=== PATIENT | female | born 1945 | race Caucasian/White ===

== ENCOUNTER 2017-03-08 10:51 | Inpatient (IN) ==
--- NOTE | 2017-03-05 22:20 | Discharge Summary ---
<Alessandra Hernandez - Last Filed: 03/05/17 22:16> Date of Encounter: 03/05/17 - Discharge Diagnosis (1) Status post total knee replacement, left Priority: Primary Status: Acute (2) Arthritis of knee, left Priority: Primary Status: Acute (3) HTN (hypertension) Priority: Secondary Status: Acute Qualifiers: Hypertension type: essential hypertension Qualified Code(s): I10 - Essential (primary) hypertension (4) HLD (hyperlipidemia) Priority: Secondary Status: Chronic Qualifiers: Hyperlipidemia type: pure hypercholesterolemia Qualified Code(s): E78.00 - Pure hypercholesterolemia, unspecified; E78.0 - Pure hypercholesterolemia (5) Thyroid disease Priority: Secondary Status: Chronic - Discharge Medications Home Medications: Aspirin Enteric Coated [Aspirin EC] 325 mg PO DAILY #21 tablet. 03/05/17 [Rx] OxyCODONE Immed Rel [Roxicodone 5 MG] 5 - 10 mg PO Q6HR PRN #40 tablet 03/05/17 [Rx] Ibuprofen [Motrin] 200 mg PO Q4-6H PRN 03/08/17 [History] Levothyroxine Sodium [Levoxyl] 50 mcg PO 0630 03/08/17 [History] Lisinopril [Zestril] 10 mg PO DAILY 03/08/17 [History] Lovastatin [Mevacor] 20 mg PO DAILY 03/08/17 [History] Mv-Mn/FA/Vit K/Lycop/Lut/Coq10 [Daily Multivitamin Capsule] 1 tab PO DAILY 03/08 [History] Allergies/Adverse Reactions: 3 Allergy/AdvReac Type Severity Reaction Status Date / Time tramadol Allergy Nausea Verified 03/08/17 11:41 - Patient Status Disposition: Home, Self-Care Condition: Good - Discharge Instructions Follow Up With: Rosario Santiago MD [Primary Care Provider] - - Hospital Course Hospital course: Ms. Wiley is a 72 year old female - Time Spent with Patient Total time spent providing and/or coordinating discharge services: <Jorje Tracey - Last Filed: 03/10/17 06:26> Date of Encounter: 03/10/17 Time of Encounter: 06:25 - Discharge Diagnosis (1) Status post total knee replacement, left Priority: Primary Status: Acute (2) Arthritis of knee, left Priority: Primary Status: Chronic (3) HTN (hypertension) Priority: Secondary Status: Chronic Qualifiers: Hypertension type: essential hypertension Qualified Code(s): I10 - Essential (primary) hypertension (4) HLD (hyperlipidemia) Priority: Secondary Status: Chronic Qualifiers: Hyperlipidemia type: pure hypercholesterolemia Qualified Code(s): E78.00 - Pure hypercholesterolemia, unspecified; E78.0 - Pure hypercholesterolemia (5) Thyroid disease Priority: Secondary Status: Chronic (6) Acute blood loss anemia Priority: Primary Status: Acute Primary care physician: Rosario Santiago - Patient Status Functional capacity at discharge: uses cane/walker Overall status at discharge: patient is progressing back to baseline - Hospital Course Hospital course: Ms. Wiley is a 72 year old female post left total knee replacement. The patient had an uneventful postoperative course. They received antibiotics and physical therapy and were discharged in stable condition. There will follow -up in the office in 2 weeks. - Time Spent with Patient Total time spent providing and/or coordinating discharge services:
[2017-03-08] MEDS ORDERED: Lidocaine -MPF 2% 2 ML VIAL ONE (11:03)
[2017-03-08] MEDS ORDERED: *HR* FentaNYL (PF) 100 MCG/2 ML VIAL ONE ×2 (11:03→12:40)
[2017-03-08] MEDS ORDERED: *HR* Midazolam HCl 2 MG/2 ML VIAL ONE (11:03)
[2017-03-08] MEDS ORDERED: *HR* Propofol 200 MG/20 ML VIAL IVP ONE (11:03)
[2017-03-08] MEDS ORDERED: Ondansetron 4 MG/2 ML VIAL ONE (11:03)
[2017-03-08] MEDS ORDERED: Dexamethasone 4 MG/ML VIAL ONE (11:03)
[2017-03-08] MEDS ORDERED: Lidocaine -MPF 1% 2 ML VIAL ID ONE (11:08)
[2017-03-08] MEDS ORDERED: Plasma-Lyte A (PH 7.4) 1,000 ML IVC SCH (11:15)
--- NOTE | 2017-03-08 11:17 | Anesthesia Evaluation PreOp ---
Date of Encounter: 03/08/17 Time of Encounter: 11:16 - Past History Planned Operation: Left total knee arthroplasty Cardiac History: HTN, Hyperlipidemia Pulmonary History: Denies Any Significant HX [employer] History: Denies Any Significant HX Other Medical History: Thyroid (hypothyroidism) Anesthesia History: Problems (patient has been admitted post-op due to low oxygen levels after anesthesia (likely related to post-op anesthetic effects and not pneumonia, etc)) Medications and Allergies Aspirin Enteric Coated [Aspirin EC] 325 mg PO DAILY #21 tablet. 03/05/17 [Rx] OxyCODONE Immed Rel [Roxicodone 5 MG] 5 - 10 mg PO Q6HR PRN #40 tablet 03/05/17 [Rx] 3 Allergy/AdvReac Type Severity Reaction Status Date / Time tramadol Allergy Nausea Verified 03/03/17 11:41 - Meds/Allergy Pre-op Review Medications Reviewed: Yes Allergies Reviewed: Yes Beta Blockers on Current Med List: No Anesthesia Results - Labs Laboratory Tests 03/03/17 03/03/17 03/03/17 12:06 12:06 12:06 WBC 6.9 Hgb 15.0 Hct 46.5 H Plt Count 268 PT 11.8 INR 1.1 APTT 30.1 Sodium 139 Potassium 4.5 Chloride 106 Carbon Dioxide 26 BUN 9 Creatinine 0.73 Est GFR ( Amer) > 60 Est GFR (Non-Af Amer) > 60 BUN/Creatinine Ratio 12 - Imaging EKG: report reviewed, image reviewed (SR, normal) Anesthesia Exam Weight: 67 kg NPO (# of Hours): >> 8 hrs - HEENT Pupil (Motor): Pupils equal, EOMI Mallampati: II Teeth: Poor dentition Oral Opening: Greater than 3 - [employer] LOC: Oriented [employer] Motor: Normal RUE, Normal LUE, Normal RLE, Normal LLE, Normal Face - Cardiac Rhythm: Regular Murmur: None - Pulmonary Breath Sounds: bilateral Clear Respiratory Effort: Symmetrical Anesthesia Assess/Plan ASA Score: 2 Modified Gerardo Scale for Level of Consciousness: Cooperative, oriented, and tranquil Anesthetic Plan: General, Regional Monitoring Plan: Standard Monitors Recovery Plan: PACU
[2017-03-08] MEDS ORDERED: *HR* Labetalol 20 MG/4 ML SYRINGE IVP PRN (11:19)
[2017-03-08] MEDS ORDERED: Dexamethasone 4 MG/ML VIAL IVP ONE (11:19)
[2017-03-08] MEDS ORDERED: Ondansetron 4 MG/2 ML VIAL IVP ONE (11:19)
[2017-03-08] MEDS ORDERED: *HR* Promethazine 25 MG/ML VIAL IVP PRN (11:19)
[2017-03-08] MEDS ORDERED: Ketorolac 15 MG/ML VIAL IVP ONE (11:19)
[2017-03-08] MEDS ORDERED: CeFAZolin Pre 2,000 MG/100 ML 2,000 MG/100 ML BAG IVPB ONE (11:27)
--- NOTE | 2017-03-08 11:27 | History & Physical Report ---
Date of Encounter: 03/08/17 Time of Encounter: 11:27 24 Hour HP Update - Instructions Instructions: If the History and Physical is less than 30 days old and was completed prior to A.M. admission and or procedure and has NOT been updated on calendar day of procedure please complete this update prior to performing procedure. - Update Patient reports changes in Medical Condition: No Changes in examination, assessment, or condition: No Changes in Medication: No Preop tests/diagnostics Reviewed: Yes Surgery Remains Indicated: Yes Consent for Planned Operative Procedure(s) Verified: Yes - Pre-Operative Checklist Preoperative Checklist Indicated: No Prophylactic Antibiotic Ordered: Yes Is VTE Prophylaxis Indicated?: Yes
[2017-03-08] MEDS ORDERED: ROPIVACAINE HCL/PF 0.5% 30 ML VIAL ONE (11:49)
[2017-03-08] MEDS ORDERED: Bupivacaine/Clonidine Syringe 1 EACH SYRINGE ONE (11:50)
--- NOTE | 2017-03-08 12:21 | Anesthesia Procedures ---
Date of Encounter: 03/08/17 Time of Encounter: 12:05 Procedures: Anesthesia - Nerve Block Procedure Date: 03/08/17 Time: 12:05 Allergies/Adv Reactions: tramadol Pre-op Diagnosis: left knee arthritis Surgical Procedure: left total knee Checklist: Correct Patient Identifier, Correct procedure, History checked Correct side: Left Blood Thinner: No Monitor Applied: EKG, BP, Pulse Oximetry Supplemental Oxygen via Nasal Cannula (L/min): 2 Sedation: Versed (mg): 1 Sedation: Fentanyl (mcg): 50 Indication: Post Op Analgesia Pre-op Neuro Deficits: No Block Type: Femoral, Other (i pac block) Catheter placed: No Sterile Technique: Yes Ultrasound used: Yes Anatomy identified: Yes Visual spread of Local: Yes Neuro Stimulation: Yes Nerve Stimulator Range: 0.2 - 0.4 mA Blood on Needle Aspiration: No Smooth Injection of Local: Yes Pain with Injection of Local: No Prep: Chlorhexadine Needle: 22 x 50 mm Stimuplex (femoral, ), 21 x 100 mm Stimuplex (i pac) Local: 0.25% Bupivicaine w/Clonidine 20 mcg/cc (20 ml for ipac), Ropivacaine ( 30ml with femoral) Volume (cc): 50 Number of Attempts: 1 Complications: None/effective block Vitals: 3 Vital Signs Time 1205 1215 BP 121/77 131/74 Pulse 95 95 Resp 16 16 O2 Sat 95 95
--- NOTE | 2017-03-08 13:00 | Orthopedic Operative Note ---
Date of procedure: 03/08/17 Pre-op diagnosis: Left knee arthritis Post-op diagnosis: same Procedure: Procedure: Left Total knee replacement Estimated blood loss: 200 cc Hardware: Metal and polyethylene replacement. Arthrex Femur: 4 Tibia: 4 PS insert: 13 Patella: 34 Exam Under anesthesia: Full flexion and extension no instability Procedural Notes: Grade 4 arthritic changes medial compartment grade 3 arthritic changes patellofemoral joint. Operative procedure: The patient was brought to the operating room and placed on the operating room table. After general anesthesia was administered the operative knee was examined. Findings were noted in the exam under anesthesia. The operative extremity was prepped and draped in sterile surgical fashion. The patient received IV antibiotics prior to skin incision. A standard midline incision was made centered over the patella. The incision was made through the skin and subcutaneous tissue. A medial parapatellar tendon approach was performed. Care was taken to preserve tissue along the medial aspect of the patella. And to protect the patella tendon. The deep MCL was released off the medial tibia. The infra patella fat pad was excised. Knee was brought into flexion. Patient to have grade 4 arthritic changes medial compartment grade 3 arthritic changes patellofemoral joint. The entry hole was made for the intramedullary femoral guide. The guide was seated in 6 degrees of valgus. Anterior cut was made followed by the distal cut. The ACL the PCL the medial and the lateral menisci were excised. The tibia was subluxed forward. The entry hole was made for the intramedullary tibial guide. Guide was seated to resect 2 mm off the more abnormal side. The knee was brought into flexion the distal femur was sized to a 4. The femoral guide was seated, the anterior cut was made followed by the posterior condylar cut, followed by the chamfer cuts. The finishing guide was seated the box cut was made and the lug holes were drilled. The tibia was sized to a 4, the tibial tray was seated and prepared with the large drill followed by the fin cutter. Trial reduction revealed full extension no varus valgus instability with the appropriate 13 PS Kathy. The patella was everted and cut was made at the level of the insertion of the quadriceps and patella tendon. The patella was sized to 34 the guide was seated and the lug holes are drilled. Trial reduction revealed excellent patella tracking. All trial components were removed all bony surfaces were irrigated. The tibia was cemented first followed by the femur. The 13 PS Kathy was seated and the knee was brought into full extension. The patella was cemented and held in place with the patellar holding clamp. After the cement had hardened, the knee sat for 2 minutes with a Betadine saline solution. The knee was then irrigated out with 2 L of pulse irrigation. The PA closed the knee. The extensor mechanism was closed with #2 FiberWire suture and #2 PDS suture. The subcutaneous tissue was then irrigated and closed deep with #1 PDS suture superficially with 0 PDS suture and skin was closed with skin christian. The patient was then placed in a sterile dressing and a postoperative brace extubated and transferred to recovery room in stable condition. Anesthesia: GETAnderson Surgeon: Jorje Tracey Condition: stable Disposition: PACU
[2017-03-08] MEDS: *HR* Morphine 2 MG/ML SYRINGE IVP PRN ×5 (13:34→13:56)
[2017-03-08] MEDS ORDERED: *HR* HYDROmorphone (PF) 1 MG/ML SYRINGE ONE (14:00)
--- NOTE | 2017-03-08 14:28 | Anesthesia Evaluation Post Op ---
Date of Encounter: 03/08/17 Time of Encounter: 14:25 - Vital Signs Vital Signs: vss - Lungs Lungs: Clear Ascult./Percussion - Airway Airway: Non-obstructed - Cardiovascular Baseline Rhythm - Mental Status Mental Status: Alert & Oriented, Answers Appropriately - Pain Pain Scale used: [place]ule[place]ka (Faces) - Nausea Vomiting Nausea Vomiting: Not Present - Hydration Hydration: Ice chips - Discharge PostOp Status: Transfer Patient to floor
[2017-03-08] MEDS ORDERED: MOM Conc 10 ML UD.LIQ PO PRN (14:34)
[2017-03-08] MEDS ORDERED: Temazepam 15 MG CAPSULE PO PRN (14:34)
[2017-03-08] MEDS ORDERED: Naloxone 0.4 MG/ML INJ IVP PRN (14:34)
[2017-03-08] MEDS ORDERED: Sennosides 8.6 MG TABLET PO PRN (14:34)
[2017-03-08 14:36] LABS: Hematocrit 38.6 % (35.3-44.9)
[2017-03-08 14:43] LABS: Hemoglobin 12.4 g/dL (11.5-15.4)
[2017-03-08] MEDS: *HR* HYDROmorphone (PF) 1 MG/ML SYRINGE IVP PRN (14:52)
[2017-03-08] MEDS: Ondansetron 4 MG/2 ML VIAL IVP PRN (14:53)
[2017-03-08] MEDS ORDERED: *HR* Enoxaparin 30 MG/0.3 ML SYRINGE SQ SCH (18:00)
[2017-03-08 18:49] LABS: BUN/Creatinine Ratio 20 (6-26); Blood Urea Nitrogen 14 mg/dL (7-20); Calcium 8.1 mg/dL (8.6-10.8); Carbon Dioxide 24 mEq/L (19-29); Chloride 106 mEq/L (98-109); Glucose 179 mg/dL (70-99); Osmolality,Calculated 293 (280-300); Potassium 4.1 mEq/L (3.5-4.5); Sodium 139 mEq/L (136-145); eGFR For African Americans > 60 (> 60); eGFR For Non-African Americans > 60 (> 60)
[2017-03-08] MEDS: *HR* Enoxaparin 30 MG/0.3 ML SYRINGE SQ SCH (18:56)
[2017-03-08] MEDS: *HR* OxyCODONE Immed Rel 5 MG TABLET PO PRN (19:55)
[2017-03-08] MEDS: ceFAZolin 2,000 MG in D5% in Water 100 ML IVPB SCH (19:55)
[2017-03-09] MEDS: *HR* HYDROmorphone (PF) 1 MG/ML SYRINGE IVP PRN ×4 (04:43→21:24)
[2017-03-09] MEDS: Ondansetron 4 MG/2 ML VIAL IVP PRN (04:48)
[2017-03-09 05:14] LABS: Hematocrit 34.3 % (35.3-44.9); Hemoglobin 11.5 g/dL (11.5-15.4)
[2017-03-09 05:48] LABS: BUN/Creatinine Ratio 22 (6-26); Blood Urea Nitrogen 16 mg/dL (7-20); Calcium 8.2 mg/dL (8.6-10.8); Carbon Dioxide 24 mEq/L (19-29); Chloride 104 mEq/L (98-109); Glucose 165 mg/dL (70-99); Osmolality,Calculated 289 (280-300); Potassium 4.3 mEq/L (3.5-4.5); Sodium 137 mEq/L (136-145); eGFR For African Americans > 60 (> 60); eGFR For Non-African Americans > 60 (> 60)
[2017-03-09] MEDS: *HR* Enoxaparin 30 MG/0.3 ML SYRINGE SQ SCH ×2 (06:36→18:54)
--- NOTE | 2017-03-09 06:54 | Orthopedics Progress Note ---
Date of Encounter: 03/09/17 Time of Encounter: 06:53 - Assessment and Plan (1) Status post total knee replacement, left Current Visit: Yes Status: Acute (2) Arthritis of knee, left Current Visit: Yes Status: Chronic (3) HTN (hypertension) Current Visit: Yes Status: Chronic Qualifiers: Hypertension type: essential hypertension Qualified Code(s): I10 - Essential (primary) hypertension (4) HLD (hyperlipidemia) Current Visit: Yes Status: Chronic Qualifiers: Hyperlipidemia type: pure hypercholesterolemia Qualified Code(s): E78.00 - Pure hypercholesterolemia, unspecified; E78.0 - Pure hypercholesterolemia (5) Thyroid disease Current Visit: Yes Status: Chronic Subjective Interval history: Patient was seen this morning doing well without complaints. Afebrile vital signs stable. Operative extremity: Neurovascularly intact Dressing clean dry and intact Calves nontender Assessment and plan: Continue with postoperative care Hematocrit 34 Objective Vital signs: Vital Signs Temp Pulse Resp BP Pulse Ox 03/09/17 04:51 98.4 F 62 18 110/54 99 03/09/17 00:50 97.6 F 75 18 96/63 97 03/08/17 22:39 97.2 F L 03/08/17 22:02 96.7 F L 62 17 106/70 100 03/08/17 17:00 95.4 F L 62 14 96/53 100 03/08/17 15:30 96.8 F L 65 12 108/57 95 03/08/17 15:00 97.6 F 60 12 101/55 100 03/08/17 14:16 97.6 F 88 16 124/61 100 03/08/17 14:06 70 15 124/61 100 03/08/17 13:56 97.6 F 66 19 111/63 100 03/08/17 13:46 81 17 104/63 100 03/08/17 13:36 78 19 89/60 99 03/08/17 13:26 97.2 F L 84 18 126/70 100 03/08/17 11:09 97.8 F 82 18 123/68 96 Intake and Output 03/08/17 03/08/17 03/09/17 15:59 23:59 07:59 Intake Total 100 / 100 100 / 100 Output Total 200 / 200 400 / 400 Balance -100 / -100 -300 / -300 Intake: IV Fluids 100 / 100 100 / 100 Ancef Premix 2,000 MG/100 100 / 100 ML 2,000 mg In 100 ml @ 200 mls/hr IVPB PREOP ONE Rx#:[id number] Ancef 2,000 MG In 100 / 100 Dextrose 5% 100 ML @ 200 mls/hr IVPB Q8H [facility] Rx#: [id number] Output: Urine 250 / 250 Emesis 150 / 150 Estimated Blood Loss 200 / 200 Other: # Voids 1 Weight 67.132 kg - Labs CBC & BMP: 03/09/17 04:46 03/09/17 04:46 Labs: Abnormal lab results Hct 34.3 % (35.3-44.9) L 03/09/17 04:46 Glucose 165 mg/dL (70-99) H 03/09/17 04:46 Calcium 8.2 mg/dL (8.6-10.8) L 03/09/17 04:46 - VTE Documentation of Mechanical Device: Venous foot pump, device Consult Discharge Plan - Plan Referrals: Rosario Santiago MD [Primary Care Provider] -
[2017-03-09] MEDS: Multivit/Ca/Min/Fe/FA 1 TAB TABLET PO SCH (07:40)
[2017-03-09] MEDS: ceFAZolin 2,000 MG in D5% in Water 100 ML IVPB SCH (07:51)
[2017-03-09] MEDS: Ringers Solution, Lactated 1,000 ML IVC SCH ×2 (08:35→23:29)
[2017-03-09] MEDS: *HR* Promethazine 25 MG/ML VIAL IVP PRN (10:14)
--- NOTE | 2017-03-09 12:33 | Event Note ---
Date of Encounter: 03/10/17 Time of Encounter: 12:31 PCR - Left TKR - POD#1 Patient seen at bedside. Hypothermia improved. Continues with warm blankets. Nausea - added Phen. D/C'ed IV pain medication to improve nausea, discussed changing to [place] if nausea continues. Pain control: adequate Participating in PT. All questions and concerns addressed. Educated on use of incentive spirometer, ambulation, and hydration. Patient educated on post-operative restrictions and care. Addressed: see above D/C plan:. HH likely 03/10
[2017-03-09] MEDS: *HR* OxyCODONE Immed Rel 5 MG TABLET PO PRN ×3 (14:26→23:26)
[2017-03-10] MEDS: *HR* OxyCODONE Immed Rel 5 MG TABLET PO PRN ×5 (05:11→21:38)
[2017-03-10] MEDS: *HR* Enoxaparin 30 MG/0.3 ML SYRINGE SQ SCH ×2 (05:11→17:24)
[2017-03-10 06:08] LABS: Hematocrit 30.6 % (35.3-44.9)
[2017-03-10 06:24] LABS: BUN/Creatinine Ratio 16 (6-26); Blood Urea Nitrogen 11 mg/dL (7-20); Calcium 8.4 mg/dL (8.6-10.8); Carbon Dioxide 25 mEq/L (19-29); Chloride 100 mEq/L (98-109); Glucose 150 mg/dL (70-99); Osmolality,Calculated 280 (280-300); Sodium 134 mEq/L (136-145); eGFR For African Americans > 60 (> 60); eGFR For Non-African Americans > 60 (> 60)
--- NOTE | 2017-03-10 06:27 | Orthopedics Progress Note ---
Date of Encounter: 03/10/17 Time of Encounter: 06:26 - Assessment and Plan (1) Status post total knee replacement, left Current Visit: Yes Status: Acute (2) Arthritis of knee, left Current Visit: Yes Status: Chronic (3) HTN (hypertension) Current Visit: Yes Status: Chronic Qualifiers: Hypertension type: essential hypertension Qualified Code(s): I10 - Essential (primary) hypertension (4) HLD (hyperlipidemia) Current Visit: Yes Status: Chronic Qualifiers: Hyperlipidemia type: pure hypercholesterolemia Qualified Code(s): E78.00 - Pure hypercholesterolemia, unspecified; E78.0 - Pure hypercholesterolemia (5) Thyroid disease Current Visit: Yes Status: Chronic (6) Acute blood loss anemia Current Visit: Yes Status: Acute Subjective Interval history: Patient was seen this morning doing well without complaints. Afebrile vital signs stable. Operative extremity: Neurovascularly intact Dressing clean dry and intact Calves nontender Assessment and plan: Continue with postoperative care Hematocrit 30 discharged today Objective Vital signs: Vital Signs Temp Pulse Resp BP Pulse Ox 03/10/17 04:20 98.8 F 97 16 122/75 94 03/09/17 23:19 98.6 F 100 16 114/64 93 03/09/17 19:32 98.1 F 86 18 134/78 96 03/09/17 15:24 97.6 F 79 18 102/68 97 03/09/17 13:48 78 18 111/52 99 03/09/17 11:16 97.5 F L 78 18 111/52 99 03/09/17 10:25 97.5 F L 80 18 125/63 100 03/09/17 07:45 97.9 F 68 18 110/66 96 03/09/17 07:37 100 Intake and Output 03/09/17 03/09/17 03/10/17 15:59 23:59 07:59 Intake Total 150 / 150 Output Total 300 / 300 0 / 0 400 / 400 Balance -300 / -300 150 / 150 -400 / -400 Intake: Oral 150 / 150 Output: Urine 300 / 300 0 / 0 400 / 400 Other: Meal Lunch Percent of Meal Consumed 50% # Voids 1 Weight 63.616 kg Patient Weight 03/10/17 23:59 Weight 63.616 kg - Labs CBC & BMP: 03/10/17 05:43 03/10/17 05:43 Labs: Abnormal lab results Hgb 10.0 g/dL (11.5-15.4) L D 03/10/17 05:43 Hct 30.6 % (35.3-44.9) L 03/10/17 05:43 Sodium 134 mEq/L (136-145) L 03/10/17 05:43 Glucose 150 mg/dL (70-99) H 03/10/17 05:43 Calcium 8.4 mg/dL (8.6-10.8) L 03/10/17 05:43 - VTE Documentation of Mechanical Device: Venous foot pump, device Consult Discharge Plan - Plan Referrals: Rosario Santiago MD [Primary Care Provider] -
[2017-03-10] MEDS: Multivit/Ca/Min/Fe/FA 1 TAB TABLET PO SCH (08:10)
--- NOTE | 2017-03-10 10:17 | Venous Imaging Report ---
LE Venous Duplex Patient Name:Abbi Wiley Order Number:[id number] Procedure Date:03/09/2017 Date:4Age:72 yrs Gender:Female Location:[facility] Room #: 3NE31 Clinical Services Consultant:Liz Ruelas RDCS Referring MD:Jorje Tracey MD moisture meter operator:Rosario Santiago MD Reading MD:Anthony Cervantes MD Primary Indications:Left calf pain Secondary Indications: Impressions: Left lower extremity: normal superficial and deep exam. Findings Prior Study: No prior study available for comparison. Lower Extremity Venous Duplex Side Vein Compress Spontaneous Flow Augment Diameter (cm) Depth (cm) Left Distal Iliac Normal Yes Phasic Yes Left Common Femoral Normal Yes Phasic Yes Left Superficial Femoral Normal Yes Phasic Yes Left Popliteal Normal Yes Phasic Yes Left Posterior Tibial Normal Yes Phasic Yes Left Peroneal Normal Yes Phasic Yes Left Saphenofemoral [place] Normal Yes Phasic Yes Left Great Saphenous Normal Yes Phasic Yes Left Lesser Saphenous Normal Yes Phasic Yes Right Common Femoral Normal Yes Phasic Yes Updated by Anthony Cervantes MD on 03/10/2017 10:09:10 AM electronically signed on 03/10/2017 10:09:27 AM with status of Final
[2017-03-11] MEDS: *HR* OxyCODONE Immed Rel 5 MG TABLET PO PRN ×4 (03:29→20:24)
[2017-03-11] MEDS: *HR* Enoxaparin 30 MG/0.3 ML SYRINGE SQ SCH ×2 (05:27→17:13)
[2017-03-11] MEDS: Multivit/Ca/Min/Fe/FA 1 TAB TABLET PO SCH (08:48)
--- NOTE | 2017-03-11 09:36 | Event Note ---
Date of Encounter: 03/10/17 Time of Encounter: 12:00 PCR - Left TKR - POD#2 Patient seen at bedside. Hypothermia resolved. Nausea - added Phen. Well controlled per patient. D/C'ed IV pain medication to improve nausea, discussed changing to [place] if nausea continues. Pain control: adequate until appx last hour before next dose due. Patient then develops exquisite tenderness and shakes with pain. Participating in PT. All questions and concerns addressed. Educated on use of incentive spirometer, ambulation, and hydration. Patient educated on post-operative restrictions and care. Addressed: see above. Pain is most likely source of rigors, no other clinical explanation for increase in pain other than metabolization of pain meds. Encouraged using ice pack and moving foot around to encourage adequate blood flow. Lidoderm patch added. Would consider muscle relaxer as well if still not well controlled. D/C plan:. HH likely 03/10
[2017-03-11] MEDS ORDERED: tiZANidine 4 MG TABLET PO PRN (09:37)
[2017-03-11] MEDS ORDERED: Gabapentin 100 MG CAPSULE PO PRN (09:38)
[2017-03-11] MEDS ORDERED: Ibuprofen 600 MG TABLET PO PRN (09:40)
--- NOTE | 2017-03-11 09:57 | Orthopedics Progress Note ---
Date of Encounter: 03/11/17 Time of Encounter: 09:55 Subjective Interval history: S: Expected postoperative pain to the left knee. No new complaints. O: Afebrile and vital signs are stable. Postoperative dressing in place without drainage. Calves are nontender. She is neurovascularly intact to the left lower extremity. A: Post left total knee arthroplasty P: Resume postoperative care. Objective Vital signs: Vital Signs Temp Pulse Resp BP Pulse Ox 03/11/17 06:48 98.5 F 93 16 107/58 96 03/11/17 03:25 98.4 F 97 18 105/51 95 03/11/17 00:12 99.2 F 94 18 115/67 93 03/10/17 20:29 99.8 F H 97 19 106/64 96 03/10/17 13:44 98.5 F 90 18 105/53 94 03/10/17 10:10 98.8 F 87 18 123/67 94 Intake and Output 03/10/17 03/11/17 03/11/17 23:59 07:59 15:59 Intake Total 560 / 560 Output Total 200 / 200 0 / 0 Balance 360 / 360 0 / 0 Intake: Oral 560 / 560 Output: Urine 200 / 200 0 / 0 Other: Weight 62.823 kg Patient Weight 03/11/17 23:59 Weight 62.823 kg - Labs CBC & BMP: 03/10/17 05:43 03/10/17 05:43 Labs: Abnormal lab results Hgb 10.0 g/dL (11.5-15.4) L D 03/10/17 05:43 Hct 30.6 % (35.3-44.9) L 03/10/17 05:43 Sodium 134 mEq/L (136-145) L 03/10/17 05:43 Glucose 150 mg/dL (70-99) H 03/10/17 05:43 Calcium 8.4 mg/dL (8.6-10.8) L 03/10/17 05:43 - VTE Documentation of Mechanical Device: Venous foot pump, device Consult Discharge Plan - Plan Referrals: Rosario Santiago MD [Primary Care Provider] -
[2017-03-12] MEDS: *HR* OxyCODONE Immed Rel 5 MG TABLET PO PRN ×2 (02:54→09:06)
[2017-03-12] MEDS: *HR* Enoxaparin 30 MG/0.3 ML SYRINGE SQ SCH ×2 (06:09→17:52)
[2017-03-12] MEDS: Multivit/Ca/Min/Fe/FA 1 TAB TABLET PO SCH (09:06)
--- NOTE | 2017-03-12 10:09 | Orthopedics Progress Note ---
Date of Encounter: 03/12/17 Time of Encounter: 10:07 Subjective Interval history: S: Postoperative pain. Patient desires more pain medication. No new complaints. O: Afebrile and vital signs are stable. Postoperative dressing in place without drainage. Calves are nontender. She is neurovascularly intact to the left lower extremity. A: Post left total knee arthroplasty P: Resume postoperative care. Has not gotten her breakhrough Dilaudid. Recommended to the nurse to give the PRN Dilaudid. Objective Vital signs: Vital Signs Temp Pulse Resp BP Pulse Ox 03/12/17 06:44 97.5 F L 93 16 105/73 96 03/12/17 00:00 97.2 F L 89 16 103/65 95 03/11/17 18:59 97.5 F L 101 16 102/66 98 03/11/17 15:05 98.4 F 86 18 114/68 95 03/11/17 10:21 98.7 F 96 16 112/63 97 Intake and Output 03/11/17 03/12/17 03/12/17 23:59 07:59 15:59 Intake Total 60 / 60 60 / 60 Output Total 300 / 300 400 / 400 Balance -240 / -240 -340 / -340 Intake: Oral 60 / 60 60 / 60 Output: Urine 300 / 300 400 / 400 - Labs CBC & BMP: 03/10/17 05:43 03/10/17 05:43 Labs: Abnormal lab results Hgb 10.0 g/dL (11.5-15.4) L D 03/10/17 05:43 Hct 30.6 % (35.3-44.9) L 03/10/17 05:43 Sodium 134 mEq/L (136-145) L 03/10/17 05:43 Glucose 150 mg/dL (70-99) H 03/10/17 05:43 Calcium 8.4 mg/dL (8.6-10.8) L 03/10/17 05:43 - VTE Documentation of Mechanical Device: Venous foot pump, device Consult Discharge Plan - Plan Referrals: Rosario Santiago MD [Primary Care Provider] -
[2017-03-12] MEDS: Ringers Solution, Lactated 1,000 ML IVC SCH ×2 (17:52→21:44)
[2017-03-12] MEDS ORDERED: 0.9 % Sodium Chloride 1,000 ML IVC ONE (18:50)
[2017-03-12 18:52] LABS: Hematocrit 23.1 % (35.3-44.9); Hemoglobin 7.6 g/dL (11.5-15.4)
[2017-03-12 19:57] LABS: Calcium 8.4 mg/dL (8.6-10.8)
[2017-03-12 19:58] LABS: Potassium 3.9 mEq/L (3.5-4.5)
[2017-03-12] MEDS ORDERED: Pantoprazole 40 MG in 0.9 % Sodium Chloride Mini Bag 100 ML IVC SCH (21:15)
[2017-03-12] MEDS: *HR* Promethazine 25 MG/ML VIAL IVP PRN (21:15)
[2017-03-12] MEDS: 0.9 % Sodium Chloride 1,000 ML IVC SCH (21:40)
[2017-03-12] MEDS ORDERED: 0.9 % Sodium Chloride 250 ML ONE (22:32)
[2017-03-12] MEDS: *HR* HYDROmorphone (PF) 1 MG/ML SYRINGE IVP PRN (22:36)
--- NOTE | 2017-03-13 01:35 | Internal Medicine Consult Note ---
Date of Encounter: 03/12/17 Time of Encounter: 20:00 - Assessment and Plan (1) Hypotension Current Visit: Yes Status: Acute Assessment and plan: Patient has hypotension with hemoglobin drop. Consider active bleeding. CT chest and abdominal unremarkable. Rectal exam did not see any active bleeding. However guaiac test positive. - Blood loss during surgery (patient had the surgery four days ago, which make it less likely) vs GI bleeding. - We will place patient on nothing by mouth, protonix drip. - Continue IV fluid, closely monitor BP. - We will give patient 2 units PRBC transfusion. - Consult GI in a.m. - We will hold blood pressure medication and Lovenox. Qualifiers: Hypotension type: other hypotension type Qualified Code(s): I95.89 - Other hypotension (2) CHALO (acute kidney injury) Current Visit: Yes Status: Acute Assessment and plan: Probably due to active bleeding and hypotension. We will continue IV fluid and follow-up renal function (3) Status post total knee replacement, left Current Visit: Yes Status: Acute Assessment and plan: Continue close monitoring. Other management per orthopedic. (4) HTN (hypertension) Current Visit: Yes Status: Chronic Assessment and plan: Hold BP medication because of hypotension. Qualifiers: Hypertension type: essential hypertension Qualified Code(s): I10 - Essential (primary) hypertension (5) HLD (hyperlipidemia) Current Visit: Yes Status: Chronic Qualifiers: Hyperlipidemia type: pure hypercholesterolemia Qualified Code(s): E78.00 - Pure hypercholesterolemia, unspecified; E78.0 - Pure hypercholesterolemia (6) Thyroid disease Current Visit: Yes Status: Chronic Assessment and plan: Continue Synthroid. (7) Acute blood loss anemia Current Visit: Yes Status: Acute Assessment and plan: So far blood loss site is considered GI tract. - We will give her 2 units of PRBC. Monitor H&H. Internal Medicine - CN: HPI - Data of Consult Patient: new to practice Consult date: 03/12/17 Requesting Physician: Jorje Tracey MD - Consult Narrative Reason for consult: Hypotension History of present illness: Ms. Wiley is a 72 year old female with history of hypertension and hyperlipidemia had a recent left knee replacement on 03/08/17, had hypotension since this afternoon. Medical consult for management. Patient feels sick, nausea, vomiting after surgery. The vomiting is clear liquid, no blood in it. Patient has a poor uptake. Since this afternoon, patient did develop hypotension, with SBP at 60s-70s, which increased to 80s after IV fluid. Patient was also found the decrease of hemoglobin (12.4/11.5/10.0/7.6). Patient has history of peptic ulcer many years ago. Patient denies black stool. The incision site of left knee replacement is clean, no bleeding. Past Med Surg Social Fam HX - Past Medical History Medical history: arthritis, hyperlipidemia, hypertension, thyroid disease Psychiatric history: no psych history - Past Surgical History Surgical History: appendectomy - Social History Smoking Status: Never smoker Smokeless Tobacco Status: No Alcohol use: none Drug use: none Internal Medicine - CN: Meds Aspirin Enteric Coated [Aspirin EC] 325 mg PO DAILY #21 tablet. 03/05/17 [Rx] OxyCODONE Immed Rel [Roxicodone 5 MG] 5 - 10 mg PO Q6HR PRN #40 tablet 03/05/17 [Rx] Ibuprofen [Motrin] 200 mg PO Q4-6H PRN 03/08/17 [History] Levothyroxine Sodium [Levoxyl] 50 mcg PO 0630 03/08/17 [History] Lisinopril [Zestril] 10 mg PO DAILY 03/08/17 [History] Lovastatin [Mevacor] 20 mg PO DAILY 03/08/17 [History] Mv-Mn/FA/Vit K/Lycop/Lut/Coq10 [Daily Multivitamin Capsule] 1 tab PO DAILY 03/08 [History] 3 Allergy/AdvReac Type Severity Reaction Status Date / Time tramadol Allergy Nausea Verified 03/08/17 11:41 Internal Medicine - CN: Exam - Constitutional Vitals: Temp Pulse Resp BP Pulse Ox 98.1 F 80 16 86/40 96 03/13/17 00:06 03/13/17 00:06 03/13/17 00:06 03/13/17 00:06 03/13/17 00:06 General appearance IM: Present: A&O X 3, answers questions appropriately Exam: Patient is a lethargic - Head Head exam: Present: atraumatic, normocephalic - Eye Eye exam: Present: PERRL - Neck Neck exam general surgery: Present: full ROM. Absent: nuchal rigidity - Respiratory Respiratory exam: Present: CTAB - Cardiovascular Cardiovascular exam IM: Present: +S1, +S2. Absent: systolic murmur - GI/Abdominal GI/Abdominal exam IM: Present: tenderness (Mild whole belly tenderness without rebound or guarding) - Rectal Rectal exam: Present: heme (+) stool, normal inspection, normal rectal tone. Absent: black stool, bloody stool - Extremities Exam Extremities exam IM: Present: warm - Neurological Exam Neurological exam: Present: CN II-XII intact, no focal deficits Internal Medicine - CN: Reslt - Labs CBC & Chem 7: 03/12/17 18:44 03/12/17 19:16 Labs: Short CBC 03/12/17 Range/Units 18:44 Hgb 7.6 L D (11.5-15.4) g/dL Hct 23.1 L (35.3-44.9) % BMP 03/12/17 19:16 Sodium 135 L Potassium 3.9 Chloride 100 Carbon Dioxide 25 BUN 19 Creatinine 1.26 H D Glucose 145 H Calcium 8.4 L - Impressions Impressions Abdomen CT 03/12/17 20:00 IMPRESSION: No acute findings. Atelectasis within the lungs. No focal consolidation or pleural effusion. No findings to suggest obstruction in the abdomen. Bladder is distended with superior margin just above the iliac crests. D/ / Cathie Barlow MD / Cathie Barlow MD Interpreting Provider: Cathie Barlow MD Chest CT 03/12/17 20:00 IMPRESSION: No acute findings. Atelectasis within the lungs. No focal consolidation or pleural effusion. No findings to suggest obstruction in the abdomen. Bladder is distended with superior margin just above the iliac crests. D/ / Cathie Barlow MD / Cathie Barlow MD Interpreting Provider: Cathie Barlow MD Consult Discharge Plan - Plan Referrals: Rosario Santiago MD [Primary Care Provider] -
[2017-03-13] MEDS ORDERED: 0.9 % Sodium Chloride 250 ML ONE (03:47)
--- NOTE | 2017-03-13 08:20 | Orthopedics Progress Note ---
Date of Encounter: 03/13/17 Time of Encounter: 08:19 - Assessment and Plan (1) Status post total knee replacement, left Current Visit: Yes Status: Acute (2) Arthritis of knee, left Current Visit: Yes Status: Chronic (3) HTN (hypertension) Current Visit: Yes Status: Chronic Qualifiers: Hypertension type: essential hypertension Qualified Code(s): I10 - Essential (primary) hypertension (4) HLD (hyperlipidemia) Current Visit: Yes Status: Chronic Qualifiers: Hyperlipidemia type: pure hypercholesterolemia Qualified Code(s): E78.00 - Pure hypercholesterolemia, unspecified; E78.0 - Pure hypercholesterolemia (5) Thyroid disease Current Visit: Yes Status: Chronic (6) Acute blood loss anemia Current Visit: Yes Status: Acute Subjective Interval history: Patient was seen this morning in cardiac care unit Afebrile vital signs stable. Operative extremity: Neurovascularly intact Dressing clean dry and intact Calves nontender Assessment and plan: Continue with postoperative care as per medical team Last hemoglobin was 7.6. The knee is not the source based on exam. We will continue to monitor and rehabilitation patient as per protocol. Objective Vital signs: Vital Signs Temp Pulse Resp BP Pulse Ox 03/13/17 07:11 98.8 F 70 15 93/42 94 03/13/17 05:36 98.4 F 74 16 87/42 03/13/17 05:21 98.2 F 72 16 82/40 03/13/17 03:59 98.3 F 77 18 81/41 95 03/13/17 03:25 98.2 F 72 16 80/35 03/13/17 00:06 98.1 F 80 16 86/40 96 03/12/17 23:51 98.0 F 78 16 78/41 96 03/12/17 21:44 97.8 F 67 16 97/52 98 03/12/17 19:19 98.1 F 70 16 80/49 100 03/12/17 19:08 98.1 F 66 14 75/41 95 03/12/17 18:51 98.1 F 63 15 71/44 99 03/12/17 18:35 98.1 F 63 14 66/30 95 03/12/17 18:20 98.0 F 60 14 67/38 95 03/12/17 17:30 78/56 03/12/17 10:26 97.8 F 97 16 107/68 98 Intake and Output 03/12/17 03/13/17 03/13/17 23:59 07:59 15:59 Intake Total 450 / 450 320 / 320 Output Total 610 / 610 1500 / 1500 Balance -160 / -160 -1180 / -1180 Intake: Oral 150 / 150 Blood Product 300 / 300 320 / 320 Rbcs Leuko Poor As-1 300 / 300 20 / 20 Unit [id number] Rbcs Leuko Poor As-3 2nd 300 / 300 Unit [id number] Output: Urine 250 / 250 500 / 500 Urethral (Frost) 500 / 500 Emesis 360 / 360 Catheter 1000 / 1000 Other: # Voids 1 Weight 70.8 kg 70.8 kg Patient Weight 03/13/17 23:59 Weight 70.8 kg - Labs CBC & BMP: 03/12/17 18:44 03/12/17 19:16 Labs: Abnormal lab results Hgb 7.6 g/dL (11.5-15.4) L D 03/12/17 18:44 Hct 23.1 % (35.3-44.9) L 03/12/17 18:44 Sodium 135 mEq/L (136-145) L 03/12/17 19:16 Creatinine 1.26 mg/dL (0.57-1.11) H D 03/12/17 19:16 Est GFR ( Amer) 50 (> 60) L 03/12/17 19:16 Est GFR (Non-Af Amer) 42 (> 60) L 03/12/17 19:16 Glucose 145 mg/dL (70-99) H 03/12/17 19:16 Calcium 8.4 mg/dL (8.6-10.8) L 03/12/17 19:16 Stool Occult Blood Positive (Negative) A 03/12/17 19:50 - VTE Documentation of Mechanical Device: Venous foot pump, device Consult Discharge Plan - Plan Referrals: Rosario Santiago MD [Primary Care Provider] -
[2017-03-13] MEDS: *HR* OxyCODONE Immed Rel 5 MG TABLET PO PRN ×2 (08:26→17:33)
[2017-03-13] MEDS: Multivit/Ca/Min/Fe/FA 1 TAB TABLET PO SCH (08:26)
[2017-03-13] MEDS: 0.9 % Sodium Chloride 1,000 ML IVC SCH (08:28)
--- NOTE | 2017-03-13 08:41 | Gastroenterology Consult Note ---
<Daiana Rivera - Last Filed: 03/13/17 12:50> Date of Encounter: 03/13/17 Time of Encounter: 11:40 - Assessment and plan (1) Acute blood loss anemia Current Visit: Yes Status: Acute Assessment and plan: hgb fell from 12.4 to 7.6 in 4 days of hospitalization s/p L knee replacement. She did receive 2 units of PRBC. Hospitalist consulted after patient became hypotensive. She has been vomiting since surgery. CT abd/pelvis negative for acute findings. + hemocult. EGD today to r/o esophagitis, gastritis, duodenitis , PUD, MW tear, varices AVMs. (2) Status post total knee replacement, left Current Visit: Yes Status: Acute - Time Spent With Patient Total time spent is greater than 50% in coordination of care (as documented) at patient's floor/unit and/or counseling patient: less than 15 minutes GI History of Present Illness - Data of Consult Patient: new to practice Consult date: 03/13/17 Requesting Physician: Jorje Tracey MD - Consult Narrative Reason for consult: anemia History of present illness: Ms. Wiley is a 72 year old female with PMH of HTN and HLD who underwent left knee replacement on 03/08/[address] Tracey. She developed hypotension post-surgery day 4. Hospitalist was consulted for medical management. Patient feels sick, nausea, vomiting after surgery. The vomiting is clear liquid, no hematemesis noted by medical staff. Patient did develop hypotension, with SBP at 60s-70s, which increased to 80s after IV fluid. Patient was also found the decrease of hemoglobin (12.4/11.5/10.0/7.6). Patient has history of peptic ulcer many years ago. Patient denies black stool. The incision site of left knee replacement is clean, no bleeding. Patient indicates lots of N/V following her recent knee surgery, abdominal pain following. She states improved at current time, but still having some abdominal soreness. She denies noticing blood in stools or black stools, no hematemesis admitted. Colonoscopy: None noted EGD: None noted Past Med Surg Social Fam HX - Past Medical History Medical history: arthritis, hyperlipidemia, hypertension, thyroid disease Psychiatric history: no psych history - Past Surgical History Surgical History: appendectomy - Social History Smoking Status: Never smoker Smokeless Tobacco Status: No Alcohol use: none Drug use: none - Gastrointestinal NSAID use: Asa Anticoagulation Use: Lovenox Number of BM Per Day: daily Gastrointestinal: Present: abdominal pain, nausea, vomiting - Constitutional Constitutional: as per HPI - EENT Eyes: as per HPI Ears: Present: as per HPI Nose, mouth and throat: Present: as per HPI - Cardiovascular Cardiovascular ROS: Present: as per HPI - Respiratory Respiratory IM: Present: as per HPI - Neurological ROS Neurological GI: Present: as per HPI - Hematologic/Lymphatic Hematologic/Lymphatic pediatric: Present: as per HPI - Musculoskeletal Musculoskeletal ROS GI: Present: other Additional Comment: L knee surgery - Integumentary Integumentary GI: Present: as per HPI - Psychiatric ROS Psychiatric GI: Present: as per HPI - Endocrine Endocrine IM: Present: as per HPI - Constitutional Vitals: Temp Pulse Resp BP Pulse Ox 98.8 F 70 15 93/42 94 03/13/17 07:11 03/13/17 07:11 03/13/17 07:11 03/13/17 07:11 03/13/17 07:11 General appearance: Present: cooperative, A&O X 3, no acute distress, answers questions appropriately - Head Head exam: Present: atraumatic, normocephalic - Eye Eye exam: Present: normal appearance, sclera anicteric - ENT ENT exam: Present: mucous membranes moist - Neck Neck exam general surgery: Present: normal inspection, trachea midline - Respiratory Respiratory exam: Present: CTAB - Cardiovascular Cardiovascular exam: Present: RRR, +S1, +S2 - GI/Abdominal GI/Abdominal exam: Present: soft, tenderness, no peritoneal signs - Rectal Rectal exam: Present: deferred - Extremities Exam Extremities exam: Present: tenderness, warm - Neurological Exam Neurological exam: Present: no focal deficits - Psychiatric Psychiatric exam: Present: normal affect, normal mood - Skin Skin exam: Present: dry, intact, pallor, warm Results - Labs CBC & Chem 7: 03/12/17 18:44 03/12/17 19:16 Labs: Last Result Calcium 8.4 mg/dL (8.6-10.8) L 03/12/17 19:16 Stool Occult Blood Positive (Negative) A 03/12/17 19:50 Entire Visit Hgb 7.6 g/dL (11.5-15.4) L D 03/12/17 18:44 Hct 23.1 % (35.3-44.9) L 03/12/17 18:44 - Impressions Impressions Abdomen CT 03/12/17 20:00 IMPRESSION: No acute findings. Atelectasis within the lungs. No focal consolidation or pleural effusion. No findings to suggest obstruction in the abdomen. Bladder is distended with superior margin just above the iliac crests. D/ / Cathie Barlow MD / Cathie Barlow MD Interpreting Provider: Cathie Barlow MD Chest CT 03/12/17 20:00 IMPRESSION: No acute findings. Atelectasis within the lungs. No focal consolidation or pleural effusion. No findings to suggest obstruction in the abdomen. Bladder is distended with superior margin just above the iliac crests. D/ / Cathie Barlow MD / Cathie Barlow MD Interpreting Provider: Cathie Barlow MD Consult Discharge Plan - Plan Referrals: Rosario Santiago MD [Primary Care Provider] - 03/23/17 3:20 pm <Nikita De La Fuente - Last Filed: 03/13/17 17:57> Date of Encounter: 03/13/17 Time of Encounter: 17:30 - Time Spent With Patient Total time spent is greater than 50% in coordination of care (as documented) at patient's floor/unit and/or counseling patient: GI History of Present Illness - Data of Consult Requesting Physician: Jorje Tracey MD - Consult Narrative History of present illness: Ms. Wiley is a 72 year old female - Constitutional Vitals: Temp Pulse Resp BP Pulse Ox 98.5 F 72 16 117/56 100 03/13/17 13:21 03/13/17 17:00 03/13/17 14:45 03/13/17 17:00 03/13/17 17:00 Results - Labs CBC & Chem 7: 03/13/17 13:02 03/13/17 13:02 Labs: Last Result Calcium 8.0 mg/dL (8.6-10.8) L 03/13/17 13:02 Stool Occult Blood Positive (Negative) A 03/12/17 19:50 Entire Visit Hgb 9.6 g/dL (11.5-15.4) L D 03/13/17 13:02 Hct 29.4 % (35.3-44.9) L 03/13/17 13:02 Total Bilirubin 1.1 mg/dL (0.2-1.2) 03/13/17 13:02 AST 21 Units/L (5-34) 03/13/17 13:02 ALT 12 Units/L (0-55) 03/13/17 13:02 - Impressions Impressions Abdomen CT 03/12/17 20:00 IMPRESSION: No acute findings. Atelectasis within the lungs. No focal consolidation or pleural effusion. No findings to suggest obstruction in the abdomen. Bladder is distended with superior margin just above the iliac crests. D/ / Cathie Barlow MD / Cathie Barlow MD Interpreting Provider: Cathie Barlow MD Chest CT 03/12/17 20:00 IMPRESSION: No acute findings. Atelectasis within the lungs. No focal consolidation or pleural effusion. No findings to suggest obstruction in the abdomen. Bladder is distended with superior margin just above the iliac crests. D/ / Cathie Barlow MD / Cathie Barlow MD Interpreting Provider: Cathie Barlow MD - Attending Attestation I examined this patient and my medical decision-making was reviewed with the Resident Physician. I agree with the documented findings, disposition and treatment plan as described except to the extent set forth below. is status post left knee surgery and now drop in hemoglobin. On examination rectally the stool is brown. Patient will have an EGD done today and if negative then will wait for colonoscopy as do not see any active sign of bleeding rectally
--- NOTE | 2017-03-13 08:55 | Event Note ---
Date of Encounter: 03/13/17 Time of Encounter: 08:55 72-year-old female admitted to orthopedic service for left total knee replacement, postoperative day 5. Hospitalist service has been consulted due to unexplained acute anemia, hypotension and acute kidney injury. Patient seen and examined at bedside. Reports generalized weakness, not feeling well, left knee and back pain. Chest-S1, S2 heard Abdomen-soft, obese, nontender Left lower extremity-status post knee replacement with ice packs to left knee. Diffuse leg edema. Labs reviewed-received 2 units PRBC, hemoglobin improved to 9.6, serum creatinine normal, serum potassium slightly low Acute anemia-unclear if this is postoperative or post hemorrhagic anemia. GI consulted, plan for EGD today. patient reports no overt symptoms of GI bleed but stool occult blood was noted to be positive. Status post 2 units PRBC, appropriate improvement in hemoglobin. Hypotension-likely related to postoperative fluid shift and dehydration. Responding to IV hydration. Lactic acid noted to be normal. Acute kidney injury-likely related to dehydration. Currently resolved with IV hydration. Status post left knee replacement-local wound care per orthopedic surgery. visitor services assistant consulted for placement to rehabilitation facility.
[2017-03-13] MEDS ORDERED: Lidocaine -MPF 2% 5 ML VIAL INFILT ONE (10:25)
[2017-03-13] MEDS ORDERED: *HR* Propofol 200 MG/20 ML VIAL IVP ONE (10:25)
--- NOTE | 2017-03-13 12:12 | Anesthesia Evaluation PreOp ---
Date of Encounter: 03/13/17 Time of Encounter: 13:18 - Past History Planned Operation: EGD Cardiac History: HTN, Hyperlipidemia Pulmonary History: Denies Any Significant HX EXHIBIT ELECTRICIAN History: Denies Any Significant HX Other Medical History: Renal (CHALO), Thyroid Anesthesia History: No Prior Anesthetic Complications, Past Anesthesia Alcohol Use: none Drug use: none Medications and Allergies Aspirin Enteric Coated [Aspirin EC] 325 mg PO DAILY #21 tablet. 03/05/17 [Rx] OxyCODONE Immed Rel [Roxicodone 5 MG] 5 - 10 mg PO Q6HR PRN #40 tablet 03/05/17 [Rx] Ibuprofen [Motrin] 200 mg PO Q4-6H PRN 03/08/17 [History] Levothyroxine Sodium [Levoxyl] 50 mcg PO 0630 03/08/17 [History] Lisinopril [Zestril] 10 mg PO DAILY 03/08/17 [History] Lovastatin [Mevacor] 20 mg PO DAILY 03/08/17 [History] Mv-Mn/FA/Vit K/Lycop/Lut/Coq10 [Daily Multivitamin Capsule] 1 tab PO DAILY 03/08 [History] 3 Allergy/AdvReac Type Severity Reaction Status Date / Time tramadol Allergy Nausea Verified 03/08/17 11:41 - Meds/Allergy Pre-op Review Medications Reviewed: Yes Allergies Reviewed: Yes Beta Blockers on Current Med List: No Anesthesia Results - Labs 03/12/17 18:44 03/12/17 19:16 - Imaging EKG: report reviewed ( SR) Anesthesia Exam Vital Signs/O2 Sat, Most Current Temp Pulse Resp BP Pulse Ox 98.5 F 83 16 125/53 96 03/13/17 11:18 03/13/17 11:18 03/13/17 11:18 03/13/17 11:18 03/13/17 11:18 Height: 5'/1.52 m Weight: 156 lbs/70.8 kg NPO (# of Hours): 8 Pain Scale: 0 Pain Scale Used: Numeric (1 - 10) - HEENT Pupil (Motor): EOMI Mallampati: II Teeth: Poor dentition Oral Opening: Greater than 3 - EXHIBIT ELECTRICIAN LOC: Oriented EXHIBIT ELECTRICIAN Motor: Normal RUE, Normal LUE, Normal RLE, Normal LLE, Normal Face EXHIBIT ELECTRICIAN Sensory: Normal: RUE, LUE, RLE, LLE, Face - Cardiac Rhythm: Regular Murmur: None - Pulmonary Breath Sounds: bilateral Clear Respiratory Effort: Symmetrical Anesthesia Assess/Plan ASA Score: 2 Modified Carmichaels Scale for Level of Consciousness: Cooperative, oriented, and tranquil Anesthetic Plan: MAC Monitoring Plan: Standard Monitors
[2017-03-13 13:29] LABS: Alanine Aminotransferase 12 Units/L (0-55); Albumin 2.1 g/dL (3.5-5.0); Albumin/Globulin Ratio 0.6 (1.1-2.2); Alkaline Phosphatase 94 Units/L (38-126); Aspartate Amino Transferase 21 Units/L (5-34); BUN/Creatinine Ratio 26 (6-26); Bilirubin,Total 1.1 mg/dL (0.2-1.2); Blood Urea Nitrogen 17 mg/dL (7-20); Carbon Dioxide 23 mEq/L (19-29); Chloride 107 mEq/L (98-109); Globulin 3.4 g/dL (2.4-3.5); Glucose 98 mg/dL (70-99); Magnesium 2.1 mg/dL (1.6-2.6); Osmolality,Calculated 288 (280-300); Potassium 3.2 mEq/L (3.5-4.5); Sodium 138 mEq/L (136-145); Total Protein 5.5 g/dL (6.0-8.3); eGFR For African Americans > 60 (> 60); eGFR For Non-African Americans > 60 (> 60)
[2017-03-13 13:40] LABS: Basophils % 0.2 %; Eosinophils # 0.2 K/mcL (0.0-0.6); Eosinophils % 1.8 %; Hematocrit 29.4 % (35.3-44.9); Immature Granulocytes % 0.8 % (0-4); Lymphocytes # 1.1 K/mcL (0.6-4.6); Lymphocytes % 12.4 %; Mean Corpuscular HGB Conc 32.7 g/dL (31.6-35.5); Mean Corpuscular Hemoglobin 29.7 pg (28.0-33.3); Mean Platelet Volume 10.4 fL (9.4-12.4); Monocytes # 1.2 K/mcL (0.0-1.3); Monocytes % 14.5 %; Nucleated Red Blood Cells 0.2 /100 WBC (0); Platelet Count 182 K/mcL (140-400); Red Blood Count 3.23 M/mcL (3.82-4.97); Red Cell Distribution Width 14.5 % (11.5-14.5); Segmented Neutrophils % 70.3 %
[2017-03-13] MEDS ORDERED: Simethicone 40 MG/0.6 ML MLS IR ONE (13:40)
[2017-03-13 13:41] LABS: Hemoglobin 9.6 g/dL (11.5-15.4)
[2017-03-13] MEDS ORDERED: Tetracaine/Benzocaine/Butamben 200MG/SPRAY (100SPY/BOT) MM ONE ×2 (14:14→14:30)
[2017-03-13] MEDS: *HR* HYDROmorphone (PF) 1 MG/ML SYRINGE IVP PRN ×2 (14:46→20:36)
[2017-03-13] MEDS ORDERED: Potassium Chloride Elixir 20 MEQ/15 ML UDC PO ONE (15:36)
[2017-03-14] MEDS: *HR* HYDROmorphone (PF) 1 MG/ML SYRINGE IVP PRN (03:11)
[2017-03-14 05:58] LABS: Basophils % 0.2 %; Eosinophils # 0.2 K/mcL (0.0-0.6); Eosinophils % 2.3 %; Hemoglobin 9.2 g/dL (11.5-15.4); Lymphocytes # 1.2 K/mcL (0.6-4.6); Lymphocytes % 12.8 %; Mean Corpuscular HGB Conc 32.9 g/dL (31.6-35.5); Mean Corpuscular Hemoglobin 30.2 pg (28.0-33.3); Mean Corpuscular Volume 91.8 fL (83.0-100.0); Mean Platelet Volume 10.2 fL (9.4-12.4); Monocytes % 18.1 %; Platelet Count 171 K/mcL (140-400); Red Blood Count 3.05 M/mcL (3.82-4.97); Red Cell Distribution Width 14.6 % (11.5-14.5); Segmented Neutrophils % 65.6 %
[2017-03-14 06:10] LABS: BUN/Creatinine Ratio 22 (6-26); Blood Urea Nitrogen 12 mg/dL (7-20); Calcium 8.1 mg/dL (8.6-10.8); Carbon Dioxide 25 mEq/L (19-29); Chloride 104 mEq/L (98-109); Glucose 114 mg/dL (70-99); Osmolality,Calculated 281 (280-300); Potassium 3.8 mEq/L (3.5-4.5); Sodium 135 mEq/L (136-145); eGFR For African Americans > 60 (> 60); eGFR For Non-African Americans > 60 (> 60)
[2017-03-14 06:31] LABS: Monocytes # 1.7 K/mcL (0.0-1.3)
[2017-03-14 06:34] LABS: Platelet Estimate Normal (Normal); Polychromasia 2+ (Not Present)
--- NOTE | 2017-03-14 06:40 | Orthopedics Progress Note ---
Date of Encounter: 03/14/17 Time of Encounter: 06:40 - Assessment and Plan (1) Status post total knee replacement, left Current Visit: Yes Status: Acute (2) Arthritis of knee, left Current Visit: Yes Status: Chronic (3) HTN (hypertension) Current Visit: Yes Status: Chronic Qualifiers: Hypertension type: essential hypertension Qualified Code(s): I10 - Essential (primary) hypertension (4) HLD (hyperlipidemia) Current Visit: Yes Status: Chronic Qualifiers: Hyperlipidemia type: pure hypercholesterolemia Qualified Code(s): E78.00 - Pure hypercholesterolemia, unspecified; E78.0 - Pure hypercholesterolemia (5) Thyroid disease Current Visit: Yes Status: Chronic (6) Acute blood loss anemia Current Visit: Yes Status: Acute Subjective Interval history: Patient was seen this morning in cardiac care unit still feels weak Afebrile vital signs stable. Operative extremity: Neurovascularly intact Dressing clean dry and intact Calves nontender Assessment and plan: Continue with postoperative care as per medical team Last hemoglobin was 9.2. The knee is not the source based on exam. Reports that GI workup negative. Objective Vital signs: Vital Signs Temp Pulse Resp BP Pulse Ox 03/14/17 04:35 100.1 F H 77 20 107/55 97 03/13/17 23:53 100.0 F H 85 18 108/55 97 03/13/17 20:21 99.6 F 81 17 120/61 100 03/13/17 17:00 72 117/56 100 03/13/17 16:30 78 120/70 98 03/13/17 16:00 76 117/61 99 03/13/17 15:45 83 117/73 97 03/13/17 15:30 81 111/50 96 03/13/17 15:15 82 111/53 96 03/13/17 15:00 84 110/53 96 03/13/17 14:45 84 16 109/47 94 03/13/17 14:30 81 16 118/67 95 03/13/17 13:21 98.5 F 80 18 136/63 95 03/13/17 11:18 98.5 F 83 16 125/53 96 03/13/17 08:38 98.8 F 70 15 93/42 99 03/13/17 07:11 98.8 F 70 15 93/42 94 Intake and Output 08/03/13/17 03/14/17 15:59 23:59 07:59 Intake Total 1400 / 1400 300 / 300 Output Total 550 / 550 1025 / 1025 350 / 350 Balance 850 / 850 -1025 / -1025 -50 / -50 Intake: IV Fluids 1100 / 1100 0.9 % Sodium Chloride 1, 1000 / 1000 000 ML @ 125 mls/hr IVC . Q8H JG Rx#:[id number] Protonix 40 MG In 0.9 % 100 / 100 Sodium Chloride (Mini-Bag +) 100 ML @ 20 mls/hr IVC .Q5H JG Rx#: [id number] Oral 300 / 300 Blood Product 300 / 300 Rbcs Leuko Poor As-3 2nd 300 / 300 Unit [id number] Output: Catheter 550 / 550 1025 / 1025 350 / 350 Other: Weight 71 kg Patient Weight 03/14/17 23:59 Weight 71 kg - Labs CBC & BMP: 03/14/17 05:47 03/14/17 05:47 Labs: Abnormal lab results RBC 3.05 M/mcL (3.82-4.97) L 03/14/17 05:47 Hgb 9.2 g/dL (11.5-15.4) L 03/14/17 05:47 Hct 28.0 % (35.3-44.9) L 03/14/17 05:47 RDW 14.6 % (11.5-14.5) H 03/14/17 05:47 Monocytes # 1.7 K/mcL (0.0-1.3) H 03/14/17 05:47 Nucleated RBCs/100 WBC 0.2 /100 WBC (0) H 03/13/17 13:02 Polychromasia 2+ (Not Present) A 03/14/17 05:47 Sodium 135 mEq/L (136-145) L 03/14/17 05:47 Creatinine 0.54 mg/dL (0.57-1.11) L 03/14/17 05:47 Glucose 114 mg/dL (70-99) H 03/14/17 05:47 Calcium 8.1 mg/dL (8.6-10.8) L 03/14/17 05:47 Serum Total Protein 5.5 g/dL (6.0-8.3) L 03/13/17 13:02 Albumin 2.1 g/dL (3.5-5.0) L 03/13/17 13:02 Albumin/Globulin Ratio 0.6 (1.1-2.2) L 03/13/17 13:02 Stool Occult Blood Positive (Negative) A 03/12/17 19:50 - VTE Documentation of Mechanical Device: Venous foot pump, device Consult Discharge Plan - Plan Referrals: Rosario Santiago MD [Primary Care Provider] - 03/23/17 3:20 pm
[2017-03-14] MEDS: *HR* OxyCODONE Immed Rel 5 MG TABLET PO PRN ×3 (06:50→19:31)
[2017-03-14] MEDS: Multivit/Ca/Min/Fe/FA 1 TAB TABLET PO SCH (08:13)
[2017-03-14] MEDS ORDERED: Acetaminophen 325 MG TABLET PO PRN (08:24)
--- NOTE | 2017-03-14 08:27 | Internal Med Progress Note ---
Date of Encounter: 03/14/17 Time of Encounter: 08:25 - Assessment and plan (1) Acute blood loss as cause of postoperative anemia Current Visit: Yes Status: Acute Assessment and plan: Stable status post 2 units of red blood cells Endoscopy showed no acute source of bleeding, continue omeprazole Monitor CBC Hold Lovenox today The patient had a fever of 100.1 last night, send a UA (2) Arthritis of knee, left Current Visit: Yes Status: Chronic Assessment and plan: Status post left total knee replacement Followed by primary team Dr Tracey (3) HTN (hypertension) Current Visit: Yes Status: Chronic Assessment and plan: Hold lisinopril Qualifiers: Hypertension type: essential hypertension Qualified Code(s): I10 - Essential (primary) hypertension (4) HLD (hyperlipidemia) Current Visit: Yes Status: Chronic Qualifiers: Hyperlipidemia type: pure hypercholesterolemia Qualified Code(s): E78.00 - Pure hypercholesterolemia, unspecified; E78.0 - Pure hypercholesterolemia (5) Thyroid disease Current Visit: Yes Status: Chronic Assessment and plan: Continue Synthroid (6) Hypotension Current Visit: Yes Status: Acute Assessment and plan: Likely secondary to acute blood lows anemia Resolved Qualifiers: Hypotension type: other hypotension type Qualified Code(s): I95.89 - Other hypotension (7) CHALO (acute kidney injury) Current Visit: Yes Status: Acute Assessment and plan: Resolved - Subjective Interval history: Denies any chest pain or shortness of breath, no dysuria, had a fever of 100.1, no evidence of infection. No diarrhea, has not had any bowel movements, mild pain on the left knee from surgical procedure - Constitutional Vitals: Temp Pulse Resp BP Pulse Ox 98.2 F 77 21 127/62 98 03/14/17 06:54 03/14/17 06:54 03/14/17 06:54 03/14/17 06:54 03/14/17 06:54 General appearance: Present: A&O X 3, answers questions appropriately - Head Head exam: Present: atraumatic, normocephalic - Eye Eye exam: Present: PERRL, conjuntiva pink, sclera anicteric Pupils: Present: PERRL - Neck Neck exam general surgery: Present: supple, trachea midline. Absent: lymphadenopathy - Respiratory Respiratory exam: Present: CTAB. Absent: accessory muscle use, rales, rhonchi, wheezes - Cardiovascular Cardiovascular exam: Present: RRR, +S1, +S2. Absent: diastolic murmur, gallop, rubs, systolic murmur - GI/Abdominal GI/Abdominal exam: Present: normal bowel sounds, soft, no peritoneal signs. Absent: distended, tenderness - Extremities Exam Extremities exam: Present: warm, radial pulses palpable and symmetrical. Absent : calf tenderness, cyanotic, pedal edema Additional comments: Left knee surgical wound without signs of infection or hematoma - Neurological Exam Neurological exam: Present: CN II-XII intact, oriented X3, no focal deficits. Absent: pronater drift, facial droop, speech deficit - Skin Skin exam: Present: dry, intact Internal Medicine: Result - Labs CBC & Chem 7: 03/14/17 05:47 03/14/17 05:47 Labs: Short CBC 03/13/17 03/14/17 Range/Units 13:02 05:47 WBC 8.5 9.1 (4.3-11.1) K/mcL Hgb 9.6 L D 9.2 L (11.5-15.4) g/dL Hct 29.4 L 28.0 L (35.3-44.9) % Plt Count 182 171 (140-400) K/mcL Neutrophils # 6.0 6.0 (1.6-8.9) K/mcL BMP 03/13/17 03/14/17 13:02 05:47 Sodium 138 135 L Potassium 3.2 L 3.8 Chloride 107 104 Carbon Dioxide 23 25 BUN 17 12 Creatinine 0.65 0.54 L Glucose 98 114 H Calcium 8.0 L 8.1 L Liver Function 03/13/17 Range/Units 13:02 Total Bilirubin 1.1 (0.2-1.2) mg/dL AST 21 (5-34) Units/L ALT 12 (0-55) Units/L Alkaline Phosphatase 94 (38-126) Units/L Albumin 2.1 L (3.5-5.0) g/dL - VTE Documentation of Mechanical Device: Venous foot pump, device Consult Discharge Plan - Plan Referrals: Rosario Santiago MD [Primary Care Provider] - 03/23/17 3:20 pm
[2017-03-14 09:46] LABS: Bilirubin,Urine Negative (Negative); Clarity,Urine Clear (Clear); Color,Urine Yellow (Yellow); Glucose,Urine (UA) Normal (Normal); Ketones,Urine 40 mg/dL (Negative); Specific Gravity,Urine 1.021 (1.010-1.025)
[2017-03-14 09:47] LABS: Blood,Urine Negative (Negative); Leukocyte Esterase,Urine Negative (Negative); Nitrite,Urine Negative (Negative); Protein,Urine Trace mg/dL (Neg-Trace); Urobilinogen,Urine Normal (Normal)
[2017-03-15] MEDS: *HR* OxyCODONE Immed Rel 5 MG TABLET PO PRN ×3 (02:57→20:15)
[2017-03-15 06:37] LABS: Hematocrit 30.2 % (35.3-44.9); Mean Corpuscular HGB Conc 33.1 g/dL (31.6-35.5); Mean Corpuscular Volume 90.7 fL (83.0-100.0); Mean Platelet Volume 9.9 fL (9.4-12.4); Platelet Count 206 K/mcL (140-400); Red Blood Count 3.33 M/mcL (3.82-4.97); Red Cell Distribution Width 13.7 % (11.5-14.5)
[2017-03-15 06:43] LABS: BUN/Creatinine Ratio 16 (6-26); Blood Urea Nitrogen 9 mg/dL (7-20); Calcium 8.4 mg/dL (8.6-10.8); Carbon Dioxide 25 mEq/L (19-29); Chloride 101 mEq/L (98-109); Glucose 123 mg/dL (70-99); Osmolality,Calculated 278 (280-300); Potassium 3.8 mEq/L (3.5-4.5); Sodium 134 mEq/L (136-145); eGFR For African Americans > 60 (> 60); eGFR For Non-African Americans > 60 (> 60)
--- NOTE | 2017-03-15 06:46 | Discharge Summary ---
Date of Encounter: 03/15/17 Time of Encounter: 06:44 - Discharge Diagnosis (1) Status post total knee replacement, left Priority: Primary Status: Acute (2) Arthritis of knee, left Priority: Primary Status: Chronic (3) HTN (hypertension) Priority: Secondary Status: Chronic Qualifiers: Hypertension type: essential hypertension Qualified Code(s): I10 - Essential (primary) hypertension (4) HLD (hyperlipidemia) Priority: Secondary Status: Chronic Qualifiers: Hyperlipidemia type: pure hypercholesterolemia Qualified Code(s): E78.00 - Pure hypercholesterolemia, unspecified; E78.0 - Pure hypercholesterolemia (5) Thyroid disease Priority: Secondary Status: Chronic (6) Acute blood loss anemia Priority: Secondary Status: Acute (7) Hypotension Priority: Secondary Status: Acute Qualifiers: Hypotension type: other hypotension type Qualified Code(s): I95.89 - Other hypotension (8) CHALO (acute kidney injury) Priority: Secondary Status: Acute - Discharge Medications Home Medications: Aspirin Enteric Coated [Aspirin EC] 325 mg PO DAILY #21 tablet.dr 03/05/17 [Rx] OxyCODONE Immed Rel [Roxicodone 5 MG] 5 - 10 mg PO Q6HR PRN #40 tablet 03/05/17 [Rx] Ibuprofen [Motrin] 200 mg PO Q4-6H PRN 03/08/17 [History] Levothyroxine Sodium [Levoxyl] 50 mcg PO 0630 03/08/17 [History] Lisinopril [Zestril] 10 mg PO DAILY 03/08/17 [History] Lovastatin [Mevacor] 20 mg PO DAILY 03/08/17 [History] Mv-Mn/FA/Vit K/Lycop/Lut/Coq10 [Daily Multivitamin Capsule] 1 tab PO DAILY 03/08 [History] Allergies/Adverse Reactions: 3 Allergy/AdvReac Type Severity Reaction Status Date / Time tramadol Allergy Nausea Verified 03/08/17 11:41 Labs on day of discharge: Labs from last 24 hours 03/15/17 03/15/17 03/14/17 06:27 06:27 08:30 WBC 10.4 RBC 3.33 L Hgb 10.0 L Hct 30.2 L MCV 90.7 MCH 30.0 MCHC 33.1 RDW 13.7 Plt Count 206 MPV 9.9 Sodium 134 L Potassium 3.8 Chloride 101 Carbon Dioxide 25 BUN 9 Creatinine 0.55 L Est GFR ( Amer) > 60 Est GFR (Non-Af Amer) > 60 BUN/Creatinine Ratio 16 Glucose 123 H Calculated Osmolality 278 L Calcium 8.4 L Urine Color Yellow Urine Clarity Clear Urine pH 6.0 Ur Specific [place] 1.021 Urine Protein Trace Urine Glucose (UA) Normal Urine Ketones 40 H Urine Blood Negative Urine Nitrite Negative Urine Bilirubin Negative Urine Urobilinogen Normal Ur Leukocyte Esterase Negative Ur Culture Indicated? NO - Impressions ITS Impressions Knee X-Ray 03/08/17 13:31 IMPRESSION: Status post left knee arthroplasty without acute postoperative complication. D/ / 03/08/2017 14:01:34 Remi Pritchett MD / jannette Interpreting Provider: Remi Pritchett MD Abdomen CT 03/12/17 20:00 IMPRESSION: No acute findings. Atelectasis within the lungs. No focal consolidation or pleural effusion. No findings to suggest obstruction in the abdomen. Bladder is distended with superior margin just above the iliac crests. D/ / Cathie Barlow MD / Cathie Barlow MD Interpreting Provider: Cathie Barlow MD Chest CT 03/12/17 20:00 IMPRESSION: No acute findings. Atelectasis within the lungs. No focal consolidation or pleural effusion. No findings to suggest obstruction in the abdomen. Bladder is distended with superior margin just above the iliac crests. D/ / Cathie Barlow MD / Cathie Barlow MD Interpreting Provider: Cathie Barlow MD Date of admission: 03/08/17 14:25 Primary care physician: Rosario Santiago Consults: 03/08/17 14:34 Consult to Occupational Therapy [CONS] Routine Comment: Evaluate, develop and implement POC Reason for Consult: post knee surgery Consult to Orthopedic Navigator [CONS] [CONS] Routine Consult to Physical Therapy [CONS] Routine Comment: Evaluate, develop and impliment POC Reason for Consult: post knee surgery Consult to Sanitation Superintendent [CONS] Routine Reason for SW Consult: post op joint replacement RT Post Op Consult [CONS] Routine 03/08/17 15:11 Consult to Nutrition [CONS] Routine Comment: Consulting Provider: NUTRITION Reason for Dietary Consult: MST Score Other:: patient past a month ago and has not been eating Consult to Sanitation Superintendent [CONS] Routine Reason for SW Consult: Home health 03/12/17 21:39 Consult to Gastroenterology [CONS] Routine Consulting Provider: Gastroenteroumou Palumbo Reason for Consult: GI bleeding Call Completed: No 03/13/17 07:10 Consult to Invasive Line Access Team [CONS] Routine Reason for Consult: Very limited vasc access, multiple failed attempts Line Type: EPIV - Patient Status Disposition: Transfer Inpatient Rehab Fac Condition: Good Functional capacity at discharge: uses cane/walker Overall status at discharge: patient is progressing back to baseline - Discharge Instructions Follow Up With: Rosario Santiago MD [Primary Care Provider] - 03/23/17 3:20 pm - Hospital Course Hospital course: Ms. Wiley is a 72 year old female Status post left total knee replacement. Patient's postoperative, course was complicated by postoperative anemia. Examination of the knee throughout her stay did not reveal any significant swelling or drainage or concern that the bleeding was within the knee. Patient had a workup by GI which was negative. Patient's discharge hematocrit is 30 in stable for the past 24 hours. Patient discharged to an ECF. Received antibiotics and physical therapy while in the hospital. - Time Spent with Patient Total time spent providing and/or coordinating discharge services: - VTE Documentation of Mechanical Device: Venous foot pump, device
--- NOTE | 2017-03-15 06:47 | Orthopedics Progress Note ---
Date of Encounter: 03/15/17 Time of Encounter: 06:47 - Assessment and Plan (1) Status post total knee replacement, left Current Visit: Yes Status: Acute (2) Arthritis of knee, left Current Visit: Yes Status: Chronic (3) HTN (hypertension) Current Visit: Yes Status: Chronic Qualifiers: Hypertension type: essential hypertension Qualified Code(s): I10 - Essential (primary) hypertension (4) HLD (hyperlipidemia) Current Visit: Yes Status: Chronic Qualifiers: Hyperlipidemia type: pure hypercholesterolemia Qualified Code(s): E78.00 - Pure hypercholesterolemia, unspecified; E78.0 - Pure hypercholesterolemia (5) Thyroid disease Current Visit: Yes Status: Chronic (6) Acute blood loss anemia Current Visit: Yes Status: Acute (7) Hypotension Current Visit: Yes Status: Acute Qualifiers: Hypotension type: other hypotension type Qualified Code(s): I95.89 - Other hypotension (8) CHALO (acute kidney injury) Current Visit: Yes Status: Acute Subjective Interval history: Patient was seen this morning in cardiac care unit still feels weak Afebrile vital signs stable. Operative extremity: Neurovascularly intact Dressing clean dry and intact Calves nontender Assessment and plan: Continue with postoperative care as per medical team Hematocrit 30 stable discharged today Objective Vital signs: Vital Signs Temp Pulse Resp BP Pulse Ox 03/15/17 03:31 98.7 F 77 19 136/74 92 03/14/17 23:00 98.5 F 83 21 129/69 92 03/14/17 19:41 98.9 F 83 17 122/75 96 03/14/17 16:34 98.2 F 83 16 131/76 93 03/14/17 10:26 98.6 F 71 16 134/66 93 03/14/17 08:27 74 18 97 03/14/17 06:54 98.2 F 77 21 127/62 98 Intake and Output 03/14/17 03/14/17 03/15/17 15:59 23:59 07:59 Intake Total 200 / 200 250 / 250 150 / 150 Output Total 200 / 200 Balance 0 / 0 250 / 250 150 / 150 Intake: Oral 200 / 200 250 / 250 150 / 150 Output: Catheter 200 / 200 Other: Meal Breakfast Dinner Percent of Meal Consumed 100% 50% # Voids 1 Weight 72.7 kg - Labs CBC & BMP: 03/15/17 06:27 03/15/17 06:27 Labs: Abnormal lab results RBC 3.33 M/mcL (3.82-4.97) L 03/15/17 06:27 Hgb 10.0 g/dL (11.5-15.4) L 03/15/17 06:27 Hct 30.2 % (35.3-44.9) L 03/15/17 06:27 Monocytes # 1.7 K/mcL (0.0-1.3) H 03/14/17 05:47 Nucleated RBCs/100 WBC 0.2 /100 WBC (0) H 03/13/17 13:02 Polychromasia 2+ (Not Present) A 03/14/17 05:47 Sodium 134 mEq/L (136-145) L 03/15/17 06:27 Creatinine 0.55 mg/dL (0.57-1.11) L 03/15/17 06:27 Glucose 123 mg/dL (70-99) H 03/15/17 06:27 Calculated Osmolality 278 (280-300) L 03/15/17 06:27 Calcium 8.4 mg/dL (8.6-10.8) L 03/15/17 06:27 Serum Total Protein 5.5 g/dL (6.0-8.3) L 03/13/17 13:02 Albumin 2.1 g/dL (3.5-5.0) L 03/13/17 13:02 Albumin/Globulin Ratio 0.6 (1.1-2.2) L 03/13/17 13:02 Urine Ketones 40 mg/dL (Negative) H 03/14/17 08:30 Stool Occult Blood Positive (Negative) A 03/12/17 19:50 - VTE Documentation of Mechanical Device: Venous foot pump, device Consult Discharge Plan - Plan Referrals: Rosario Santiago MD [Primary Care Provider] - 03/23/17 3:20 pm
--- NOTE | 2017-03-15 07:13 | Venous Imaging Report ---
LE Venous Duplex Patient Name:Abbi Wiley Order Number:[id number] Procedure Date:03/14/2017 Date:4Age:72 yrs Gender:Female Location:[facility] Room #: 3NE24 Yard Hand:Liz Ruelas RDCS Referring MD:Alessandra Hernandez PA-C pharmacy retail support specialist:Rosario Santiago MD Reading MD:Shawn Galicia MD Primary Indications:Left leg swelling, warmth/pain Secondary Indications: Risk Factors Yes/No Recent Surgery Impressions: Normal left lower extremity deep and superficial venous exam. Normal contralateral common femoral vein. Lower Extremity Venous Duplex Side Vein Compress Spontaneous Flow Augment Diameter (cm) Depth (cm) Left Distal Iliac Normal Yes Phasic Yes Left Common Femoral Normal Yes Phasic Yes Left Superficial Femoral Normal Yes Phasic Yes Left Popliteal Normal Yes Phasic Yes Left Posterior Tibial Normal Yes Phasic Yes Left Peroneal Normal Yes Phasic Yes Left Saphenofemoral [place] Normal Yes Phasic Yes Left Great Saphenous Normal Yes Phasic Yes Left Lesser Saphenous Normal Yes Phasic Yes Right Common Femoral Normal Yes Phasic Yes Updated by Shawn aGlicia MD on 03/15/2017 7:08:13 AM electronically signed on 03/15/2017 7:08:27 AM with status of Final
--- NOTE | 2017-03-15 09:08 | Internal Med Progress Note ---
<Tim Arizmendi - Last Filed: 03/15/17 11:43> Date of Encounter: 03/15/17 Time of Encounter: 09:08 - Assessment and plan (1) Acute blood loss as cause of postoperative anemia Current Visit: Yes Status: Acute Assessment and plan: Hb was determined to be 12.4 s/p L TKA per Dr. Tracey on 03/08/17, from previous Hb 15.0 Stable s/p 2 Units of pRBC. EGD complete 03/13/17 revealed normal esophagus, normal stomach, and large gastric body scar. Hemoccult positive 03/12/17 Hb this morning 10.0, from 9.2 yesterday. Continues to be stable and improving. Vitals stable and appropriate. Recommend repeat CBC in a couple days following discharge. Due to stablizing anemia and stable vitals without hypotension, Medicine will sign off at this time. Patient documented to go to ECF. (2) Hypotension Current Visit: Yes Status: Resolved Assessment and plan: Resolved. Medicine team consulted for hypotension in the 60-70s on 03/13/17 and also found to have worsening blood loss anemia with Hb 10.0. Responded to IV fluids. Hypotension likely secondary to acute blood loss anemia. Bp has been stable overnight and yesterday. Bp 132-136/74-78, pulse 72-79 overnight. Qualifiers: Hypotension type: other hypotension type Qualified Code(s): I95.89 - Other hypotension (3) Status post total knee replacement, left Current Visit: Yes Status: Acute Assessment and plan: POD #7 s/p Left total knee arthroplasty for history of left knee arthritis per Dr. Tracey. Incision clean dry intact without drainage or erythema. Continue plan and pain management per Ortho. (4) HTN (hypertension) Current Visit: Yes Status: Chronic Assessment and plan: History of hypertension on lisinopril. Held yesterday. Bp 132-136/74-78, pulse 72-79 overnight. Cr 0.55 Currently stable, may resume home medication for chronic disease management. Qualifiers: Hypertension type: essential hypertension Qualified Code(s): I10 - Essential (primary) hypertension (5) HLD (hyperlipidemia) Current Visit: Yes Status: Chronic Assessment and plan: History of hyperlipidemia. Continue home medications for chronic disease management. Qualifiers: Hyperlipidemia type: pure hypercholesterolemia Qualified Code(s): E78.00 - Pure hypercholesterolemia, unspecified; E78.0 - Pure hypercholesterolemia (6) Thyroid disease Current Visit: Yes Status: Chronic Assessment and plan: History of hypothyroidism on Synthroid. Continue home medications for chronic disease management. (7) DVT prophylaxis Current Visit: Yes Status: Acute Assessment and plan: IPCD foot - Subjective Interval history: Ms. Wiley is a pleasent 72 year old female who is POD #7 s/p Left total knee arthroplasty who was found to have significant blood loss anemia postsurgically and developed hypotension. Overnight the patient did well. Reported mild abdominal pain which was relieved shortly after having a bowel movement that was described as soft normal without blood. Patient also continues to report mild nausea relieved by medications and tolerating food "okay." Patient reports pain of 5/10 severity of left knee. Hb 10.0, Hct 30.2 this morning, bp 132-136/74-78, pulse 72-79. Denies fevers, chills, sweats, headaches, lightheadedness, vomiting, chest pain , shortness of breath, changes in bowels or bladder, weakness, or loss of sensation. - Constitutional Vitals: Temp Pulse Resp BP Pulse Ox 98.4 F 79 18 132/78 94 03/15/17 06:40 03/15/17 06:40 03/15/17 06:40 03/15/17 06:40 03/15/17 06:40 General appearance: Present: cooperative, A&O X 3, pleasant, no acute distress, answers questions appropriately - Head Head exam: Present: atraumatic, normal inspection, normocephalic - Eye Eye exam: Present: EOMI, normal appearance - ENT ENT exam: Present: mucous membranes moist, normal exam, normal oropharynx - Neck Neck exam general surgery: Present: full ROM, normal inspection, supple, trachea midline. Absent: tenderness - Respiratory Respiratory exam: Present: CTAB. Absent: rales, rhonchi, wheezes - Cardiovascular Cardiovascular exam: Present: RRR, +S1, +S2. Absent: diastolic murmur, systolic murmur - GI/Abdominal GI/Abdominal exam: Present: normal bowel sounds, soft. Absent: distended, guarding, tenderness - Extremities Exam Extremities exam: Present: tenderness, warm, radial pulses palpable and symmetrical. Absent: pedal edema Additional comments: left knee incision clean dry intact without drainage or erythema, ROM not assessed, dorsalis pedis pulses normal and equal bilaterally, normal sensation, moves toes when prompted. - Neurological Exam Neurological exam: Present: altered, oriented X3, no focal deficits. Absent: facial droop, speech deficit - Psychiatric Psychiatric exam: Present: normal affect, normal mood Internal Medicine: Result - Labs CBC & Chem 7: 03/15/17 06:27 03/15/17 06:27 Labs: Short CBC 03/15/17 Range/Units 06:27 WBC 10.4 (4.3-11.1) K/mcL Hgb 10.0 L (11.5-15.4) g/dL Hct 30.2 L (35.3-44.9) % Plt Count 206 (140-400) K/mcL BMP 03/15/17 06:27 Sodium 134 L Potassium 3.8 Chloride 101 Carbon Dioxide 25 BUN 9 Creatinine 0.55 L Glucose 123 H Calcium 8.4 L Urine 03/14/17 Range/Units 08:30 Urine Color Yellow (Yellow) Urine Clarity Clear (Clear) Urine pH 6.0 (5.0-8.0) pH Units Ur Specific [place] 1.021 (1.010-1.025) Urine Protein Trace (Neg-Trace) mg/dL Urine Glucose (UA) Normal (Normal) mg/dL - VTE Documentation of Mechanical Device: Venous foot pump, device Consult Discharge Plan - Plan Referrals: Rosario Santiago MD [Primary Care Provider] - 03/23/17 3:20 pm <Cedrick Domingo - Last Filed: 03/15/17 14:28> Date of Encounter: 03/15/17 - Constitutional Vitals: Temp Pulse Resp BP Pulse Ox 98.1 F 78 16 154/77 93 03/15/17 10:47 03/15/17 10:47 03/15/17 10:47 03/15/17 10:47 03/15/17 10:47 Internal Medicine: Result - Labs CBC & Chem 7: 03/15/17 06:27 03/15/17 06:27 Labs: Short CBC 03/15/17 Range/Units 06:27 WBC 10.4 (4.3-11.1) K/mcL Hgb 10.0 L (11.5-15.4) g/dL Hct 30.2 L (35.3-44.9) % Plt Count 206 (140-400) K/mcL BMP 03/15/17 06:27 Sodium 134 L Potassium 3.8 Chloride 101 Carbon Dioxide 25 BUN 9 Creatinine 0.55 L Glucose 123 H Calcium 8.4 L - Attending Attestation I have independently seen and examined this patient on 03/15/17 , reviewed the EMR and discussed plan of care with the patient and resident physician 72 F admitted and managed for L TKR, POD 7 Medicine was consulted for management of acute blood loss anemia, hypotension and CHALO post-op She has additional PMH of HTN, HLD, Hypothyroidism She denies new complains on evaluation this morning, and is being planned for discharge by orthopedics-primary team Her Hb is stable at 10 s/p 2 units RBCs. Her BP has been normal and borderline high, her ACEI has been restarted and her renal function is back to normal baseline Physical exam is unremarkable. L knee with clean incision, wound site is clean, not erythematous, L foot is neurovascularly intact I agree with signing off on this patient Rest of management is per primary team We will be happy to be re-consulted should need be Thank you for the opportunity to have participated in this patient's care Kindly ensure follow up with her PCP after discharge
[2017-03-15] MEDS: Multivit/Ca/Min/Fe/FA 1 TAB TABLET PO SCH (09:37)
[2017-03-15 14:34] LABS: Bilirubin,Urine Negative (Negative); Blood,Urine Negative (Negative); Clarity,Urine Clear (Clear); Color,Urine Yellow (Yellow); Glucose,Urine (UA) Normal (Normal); Ketones,Urine 15 mg/dL (Negative); Leukocyte Esterase,Urine Trace (Negative); Nitrite,Urine Negative (Negative); PH,Urine 7.5 pH Units (5.0-8.0); Protein,Urine Negative (Neg-Trace); Specific Gravity,Urine 1.013 (1.010-1.025); Urobilinogen,Urine Normal (Normal)
[2017-03-15 14:38] LABS: Bacteria,Urine None Seen per hpf (None-Few); Hyaline Casts,Urine None Seen per lpf (None-Few); Squamous Epithelial Cell,Urine Many per lpf (None-Few); WBC,Urine 15-30 per hpf (0-3)
[2017-03-16] MEDS: *HR* OxyCODONE Immed Rel 5 MG TABLET PO PRN ×3 (01:41→13:45)
--- NOTE | 2017-03-16 05:54 | Orthopedics Progress Note ---
Date of Encounter: 03/16/17 Time of Encounter: 05:53 - Assessment and Plan (1) Status post total knee replacement, left Current Visit: Yes Status: Acute (2) Arthritis of knee, left Current Visit: Yes Status: Chronic (3) HTN (hypertension) Current Visit: Yes Status: Chronic Qualifiers: Hypertension type: essential hypertension Qualified Code(s): I10 - Essential (primary) hypertension (4) HLD (hyperlipidemia) Current Visit: Yes Status: Chronic Qualifiers: Hyperlipidemia type: pure hypercholesterolemia Qualified Code(s): E78.00 - Pure hypercholesterolemia, unspecified; E78.0 - Pure hypercholesterolemia (5) Thyroid disease Current Visit: Yes Status: Chronic (6) Acute blood loss anemia Current Visit: Yes Status: Acute (7) Hypotension Current Visit: Yes Status: Resolved Qualifiers: Hypotension type: other hypotension type Qualified Code(s): I95.89 - Other hypotension (8) CHALO (acute kidney injury) Current Visit: Yes Status: Acute Subjective Interval history: Patient was seen this morning in cardiac care unit still feels weak Afebrile vital signs stable. Operative extremity: Neurovascularly intact Dressing clean dry and intact Calves nontender Assessment and plan: Continue with postoperative care as per medical team Discharge today Objective Vital signs: Vital Signs Temp Pulse Resp BP Pulse Ox 03/16/17 04:52 98.5 F 80 18 137/72 92 03/15/17 23:33 98.1 F 87 17 129/70 94 03/15/17 18:52 98.6 F 84 16 116/68 94 03/15/17 16:09 98.4 F 90 16 117/66 94 03/15/17 10:47 98.1 F 78 16 154/77 93 03/15/17 06:40 98.4 F 79 18 132/78 94 Intake and Output 03/15/17 03/15/17 03/16/17 15:59 23:59 07:59 Intake Total 720 / 720 50 / 50 50 / 50 Output Total 1000 / 1000 200 / 200 300 / 300 Balance -280 / -280 -150 / -150 -250 / -250 Intake: Oral 720 / 720 50 / 50 50 / 50 Output: Urine 1000 / 1000 200 / 200 300 / 300 Other: Meal Lunch Percent of Meal Consumed 30% Stool Size Small # Bowel Movements 1 Weight 73.9 kg Patient Weight 03/16/17 23:59 Weight 73.9 kg - Labs CBC & BMP: 03/15/17 06:27 03/15/17 06:27 Labs: Abnormal lab results RBC 3.33 M/mcL (3.82-4.97) L 03/15/17 06:27 Hgb 10.0 g/dL (11.5-15.4) L 03/15/17 06:27 Hct 30.2 % (35.3-44.9) L 03/15/17 06:27 Monocytes # 1.7 K/mcL (0.0-1.3) H 03/14/17 05:47 Nucleated RBCs/100 WBC 0.2 /100 WBC (0) H 03/13/17 13:02 Polychromasia 2+ (Not Present) A 03/14/17 05:47 Sodium 134 mEq/L (136-145) L 03/15/17 06:27 Creatinine 0.55 mg/dL (0.57-1.11) L 03/15/17 06:27 Glucose 123 mg/dL (70-99) H 03/15/17 06:27 Calculated Osmolality 278 (280-300) L 03/15/17 06:27 Calcium 8.4 mg/dL (8.6-10.8) L 03/15/17 06:27 Serum Total Protein 5.5 g/dL (6.0-8.3) L 03/13/17 13:02 Albumin 2.1 g/dL (3.5-5.0) L 03/13/17 13:02 Albumin/Globulin Ratio 0.6 (1.1-2.2) L 03/13/17 13:02 Urine Ketones 15 mg/dL (Negative) H 03/15/17 14:20 Ur Leukocyte Esterase Trace (Negative) H 03/15/17 14:20 Urine Microscopic RBC 5-15 per hpf (0-3) H 03/15/17 14:20 Urine Microscopic WBC 15-30 per hpf (0-3) H 03/15/17 14:20 Ur Squamous Epith Cells Many per lpf (None-Few) H 03/15/17 14:20 Stool Occult Blood Positive (Negative) A 03/12/17 19:50 - VTE Documentation of Mechanical Device: Venous foot pump, device Consult Discharge Plan - Plan Referrals: Rosario Santiago MD [Primary Care Provider] - 03/23/17 3:20 pm
[2017-03-16] MEDS: Multivit/Ca/Min/Fe/FA 1 TAB TABLET PO SCH (08:11)
[2017-03-16 10:38] VITALS: BP 115/69
--- NOTE | 2017-03-16 11:31 | Physician Discharge Referral ---
ExtendedCare Referral Info Transfer To: F Provider in Charge: Provider in Charge after Transfer: PCP Institutional Level of Care: Skilled - Diagnosis (1) Status post total knee replacement, left Priority: Primary Status: Acute (2) Arthritis of knee, left Priority: Primary Status: Chronic (3) HTN (hypertension) Priority: Secondary Status: Chronic (4) HLD (hyperlipidemia) Priority: Secondary Status: Chronic (5) Thyroid disease Priority: Secondary Status: Chronic (6) CHALO (acute kidney injury) Priority: Secondary Status: Acute (7) Acute blood loss as cause of postoperative anemia Priority: Primary Status: Acute Expected Duration of Placement: < 30 days Prognosis: Good Aware of Diagnosis: Patient Aware of Prognosis: Patient - Transfer Medications Home Medications: Aspirin Enteric Coated [Aspirin EC] 325 mg PO DAILY #21 tablet. 03/05/17 [Rx] OxyCODONE Immed Rel [Roxicodone 5 MG] 5 - 10 mg PO Q6HR PRN #40 tablet 03/05/17 [Rx] Ibuprofen [Motrin] 200 mg PO Q4-6H PRN 03/08/17 [History] Levothyroxine Sodium [Levoxyl] 50 mcg PO 0630 03/08/17 [History] Lisinopril [Zestril] 10 mg PO DAILY 03/08/17 [History] Lovastatin [Mevacor] 20 mg PO DAILY 03/08/17 [History] Mv-Mn/FA/Vit K/Lycop/Lut/Coq10 [Daily Multivitamin Capsule] 1 tab PO DAILY 03/08 [History] Allergies/Adverse Reactions: 3 Allergy/AdvReac Type Severity Reaction Status Date / Time tramadol Allergy Nausea Verified 03/08/17 11:41 - Respiratory Orders None Smoking Cessation: Smoking cessation has been advised. For more information, call the [place] Tobacco Quit Line at 4-549-GBAT-NOW. - Ancillary Orders May use pressure relief devices daily prn, May go on JANET w/family/respon republican w /meds at nurse discretion PRN, May consult with Dentist, Substation Operator Transforming, Acid Pumper PRN - Mobility Orders Chair, Ambulate - Rehabiliation Orders Rehab Potential: Good Rehab Orders: ROM Exercises, Evaluation for Physical Therapy, Evaluation for Occupational Therapy - Treatments List/Other: Opsite dressing, leave intact until first post-operative visit. If dressing becomes >50% saturated, contact office, remove dressing and place appropriate dressing in its place. Do not allow for dressing to get wet. Doran in place, plan to remove at post-operative day #14-16. Total Joint Precautions x 6 weeks Apply cold therapy wrap 3-6x/day for 20 minutes at a time. Encourage ambulation throughout the day Use Incentive spirometer 10x/hour. Elevate affected extremity above heart as tolerated. Brace: Wear knee immobilizer at night x 1 week. - Diet Orders Regular CERTIFICATION: I certify that the transfer of the above named patient to an Extended Care Facility is necessary for the continuing treatment of the diagnosis listed. The above information is true and accurate reflection of patient's current condition. Confidential - Redisclosure prohibited without a patient's written consent.
--- NOTE | 2017-03-16 12:40 | Event Note ---
Date of Encounter: 03/16/17 Time of Encounter: 12:37 PCR Left TKR 03/08/17 PCR - POD#7 Patient seen at bedside. Hospitalist signed off 03/15/17. HH stable. Urinary complaints, awaiting culture. Started on Ciprofloxacin. Pain control: adequate Participating in PT. All questions and concerns addressed. Educated on use of incentive spirometer, ambulation, and hydration. Patient educated on post-operative restrictions and care. D/C plan:. D/C today to [facility]
== END 2017-03-16 14:00 | DRG 470 ==
LOC: SAMDAY 10:51 → 3NENU 14:25 → SUATTDRO 14:25 → 2NNU 03-12 20:54 → 3NENU 03-14 10:18
PROVIDERS: ADMIT Orthopaedic Surgery; ATTEND Internal Medicine